=== PATIENT | female | born 1980 | race Caucasian/White ===

== ENCOUNTER 2019-04-28 10:39 | Inpatient (IN) | payer BC, OTHER ==
[~2019-04-28] VITALS: Ht 160 cm; Wt 64.4 kg
[2019-04-28 10:42] VITALS: BP 119/79
--- NOTE | 2019-04-28 10:53 | NUR ---
PT TO BED 4 WITH STEADY GAIT
[2019-04-28] MEDS ORDERED: NACL 0.9% 1,000 ML IV ONE (11:10)
--- NOTE | 2019-04-28 11:11 | NUR ---
PATIENT PRESENTS TO ED WITH C/O VAGINAL BLEEDING WITH CLOTS SINCE 03/29/19 WITH FEELING LIGHTHEADED AND DIZZINESS. NO C/O DISCHARGE OR URINARY SYMPTOMS. C/O PALPITATIONS AND GENERAL WEAKNESS. PT STATES THAT SHE IS TAKING AN IRON SUPPLEMENT 3X DAY FOR ANEMIA. DENIES N/V/D; SKIN IS PINK/WARM/DRY; AAOX4 WITH EVEN AND STEADY GAIT; HR EVEN AND REGULAR; PT DENIES ANY FEVER, CP, SOB, OR COUGH AT THIS TIME; PATIENT STATES PAIN OF 0/10 AT THIS TIME; VSS; PATIENT POSITIONED FOR COMFORT; HOB ELEVATED; BEDRAILS UP X2; BED DOWN. ER MD SAW PT.
[2019-04-28 11:37] LABS: BASOPHILS % (AUTO) 0.6 % (0.0-2.0); EOSINOPHILS % (AUTO) 0.3 % (0.0-4.0); HEMATOCRIT 20.8 % (36-48); LYMPHOCYTES # (AUTO) 1.4 K/uL (2.5-16.5); MEAN CORPUSCULAR HEMOGLOBIN 28 pg (27-31); MEAN CORPUSCULAR HGB CONC 32 g/dL (33-37); MEAN CORPUSCULAR VOLUME 86.8 fL (80-94); MONOCYTES # (AUTO) 0.6 K/uL (0.8-1.0); MONOCYTES % (AUTO) 6.6 % (1.7-9.3); NEUTROPHILS # (AUTO) 6.6 K/uL (1.8-7.7); NEUTROPHILS % (AUTO) 76.5 % (42.2-75.2); PLATELET COUNT (AUTO) 405 K/uL (140-450); RED BLOOD CELL COUNT(AUTO) 2.39 MIL/uL (4.20-5.40); RED CELL DISTRIBUTION WIDTH 27.5 % (11.6-13.7); WHITE BLOOD COUNT (AUTO) 8.6 K/uL (4.8-10.8)
[2019-04-28 11:39] LABS: PROTHROMBIN TIME 9.3 secs (10.8-13.4)
[2019-04-28 11:41] LABS: ALBUMIN 3.2 g/dL (3.4-5.0); ANION GAP 10.8 (8-16); CARBON DIOXIDE 24.9 mmol/L (21-32); CREATININE 0.8 mg/dL (0.6-1.3); POTASSIUM 3.7 mmol/L (3.5-5.1); TOTAL BILIRUBIN 0.1 mg/dL (0.0-1.0)
[2019-04-28 11:45] LABS: APPEARANCE,URINE CLOUDY (CLEAR); BILIRUBIN,URINE NEGATIVE (NEGATIVE); BLOOD, URINE 3+ (NEGATIVE); COLOR,URINE RED (YELLOW); LEUKOCYTE ESTERASE ,URINE 2+ (NEGATIVE); NITRITE, URINE POSITIVE (NEGATIVE); UGLUCOSE NEGATIVE (NEGATIVE)
[2019-04-28 12:06] LABS: RBC,URINE >100 /HPF (0-5); WBC,URINE 16-25 (MOD) /HPF (0-5)
[2019-04-28 12:12] LABS: HEMOGLOBIN 6.7 g/dL (12.0-16.0)
[2019-04-28] MEDS ORDERED: cefTRIAXone 1,000 MG VIAL ONE (12:33)
[2019-04-28 13:35] VITALS: BP 94/67
--- NOTE | 2019-04-28 13:35 | NUR ---
Patient will be admitted to care of DR. JOSHUA. Admited to MS. Will go to room 120-A. Belongings list completed. Report to EDWIN FARFAN.
--- NOTE | 2019-04-28 13:35 | NUR ---
RECEIVED PT FROM ER NURSE, VIA AYLINRAKOSUA, PT IS AWAKE AND AMBULATED TO THE BED, WITH FAMILY ON THE BEDSIDE, IV LINE ON THE RT HAND G. 22 WITH NS INFUSING AT BOLUS AT A 300ML VOLUME, PT DENIES PAIN AND NO SIGN OF DISTRESS NOTED, SIDE RAISL ARE UP AND CALL LIGHT WITHIN REACH, SAFETY PRECAUTION INITIATED, BELONGINGS ARE WITH PT WILL CONTINUE TO BE MONITORED
--- NOTE | 2019-04-28 13:40 | NUR ---
VITAL SIGNS TAKEN AND BP IS 94/35, TEMPERATURE IS 97.7, PULSE IS 74, O2 SATURATION IS AT 100%, NO SIGN OF DISTRESS NOTED AND WILL MONITOR PT.
--- NOTE | 2019-04-28 13:50 | NUR ---
MRSA SWAB DOEN TO PT AND SAMPLE SENT TO LAB.
[2019-04-28 16:00] VITALS: BP 94/50
--- NOTE | 2019-04-28 16:25 | NUR ---
BLOOD TRANSFUSION WAS STARTED TO PT, HGB IS 6.7, VITAL SIGNS TAKEN 10MINS PRIOR. WILL MONITOR PT.
--- NOTE | 2019-04-28 17:25 | NUR ---
PT'S BLOOD TRANSFUSION RATE WAS INCREASED TO 100ML. WILL MONITOR PT.
--- NOTE | 2019-04-28 18:00 | NUR ---
PT WAS GIVEN A REGULAR DIET DINNER TRAY AND NO SIGN OF DISTRESS NOTED, BT WAS STILL GOING.
--- NOTE | 2019-04-28 18:40 | NUR ---
DR. BANKS CAME TO THE PT'S ROOM AND SPOKE TO PT REGARDING THE PLAN OF CARE.
--- NOTE | 2019-04-28 19:20 | NUR ---
ENDORSED PT TO CUTTING MACHINE OPERATOR NURSE OBED, FOR CONTINUITY OF CARE.
--- NOTE | 2019-04-28 19:21 | NUR ---
RECEIVED BEDSIDE REPORT FROM DAY SHIFT NURSE, PT IS AAOX4, SPOUSE AT BEDSIDE. DR. KENDRICK VISITED. IV LINE ON THE RT HAND G. 22 WITH BLOOD TRANSFUSION, PT DENIES PAIN AND NO SIGN OF DISTRESS NOTED, SIDE RAISE ARE UP AND CALL LIGHT WITHIN REACH, SAFETY PRECAUTION INITIATED, BOARD UPDATED, BED IN LOW POSITION.
[2019-04-28] MEDS ORDERED: medroxyPROGESTERone 10 MG TAB PO SCH (19:30)
--- NOTE | 2019-04-28 20:10 | NUR ---
1ST BAG OF BLOOD DONE. VS CHECKED, WITHIN PT'S BASELINE. WILL HANG 2ND BAG.
--- NOTE | 2019-04-28 21:20 | NUR ---
VS CHECKED, WITHIN PT'S BASELINE. WILL CONTINUE TO MONITOR.
--- NOTE | 2019-04-28 21:30 | NUR ---
2ND BAG OF BLOOD UNIT STARTED, VERIFIED WITH CHARGE NURSE, MARIA TERESA. PT TOLERATED WELL. WILL CONTINUE TO MONITOR.
--- NOTE | 2019-04-28 21:45 | NUR ---
VS CHECKED, WITHIN PT'S BASELINE. WILL CONTINUE TO MONITOR.
--- NOTE | 2019-04-28 22:00 | NUR ---
PROVERA IS NOT AVAILABLE IN THE UNIT. CALLED DR. BANKS AND HE ORDERED OK TO START FROM TOMORROW MORNING. REPORTED DR. PT DOES NOT HAVE FLUID ORDER AFTER BLOOD TRANSFUSION. RECEIVED LR @125MLS/HR. WILL START IV FLUID AFTER BLOOD UNIT. VS CHECKED, WITHIN PT'S BASELINE. WILL CONTINUE TO MONITOR.
--- NOTE | 2019-04-28 23:00 | NUR ---
VS CHECKED, WITHIN PT'S BASELINE. WILL CONTINUE TO MONITOR.
[2019-04-29] VITALS: BP 91/44
--- NOTE | 2019-04-29 | NUR ---
VS CHECKED, WITHIN PT'S BASE LINE. WILL CONTINUE TO MONITOR.
[2019-04-29] MEDS ORDERED: LACTATED RINGERS 1,000 ML IV SCH (00:15)
--- NOTE | 2019-04-29 00:20 | NUR ---
2ND BAG OF BLOOD TRANSFUSION DONE. PT TOLERATED WELL.
--- NOTE | 2019-04-29 02:15 | NUR ---
PT SLEEPING IN BED. NO ACUTE DISTRESS NOTED.
--- NOTE | 2019-04-29 04:25 | NUR ---
PT SLEEPING IN BED. NO ACUTE DISTRESS NOTED.
[2019-04-29 06:21] LABS: BASOPHILS # (AUTO) 0.1 K/uL (0.00-0.22); BASOPHILS % (AUTO) 0.6 % (0.0-2.0); EOSINOPHILS # (AUTO) 0.1 K/uL (0-0.4); EOSINOPHILS % (AUTO) 1.1 % (0.0-4.0); HEMATOCRIT 26.7 % (36-48); HEMOGLOBIN 8.9 g/dL (12.0-16.0); LYMPHOCYTES # (AUTO) 1.7 K/uL (2.5-16.5); MEAN CORPUSCULAR HEMOGLOBIN 29 pg (27-31); MEAN CORPUSCULAR HGB CONC 33 g/dL (33-37); MEAN CORPUSCULAR VOLUME 85.9 fL (80-94); MONOCYTES # (AUTO) 0.5 K/uL (0.8-1.0); MONOCYTES % (AUTO) 5.6 % (1.7-9.3); NEUTROPHILS # (AUTO) 6.4 K/uL (1.8-7.7); PLATELET COUNT (AUTO) 317 K/uL (140-450); RED BLOOD CELL COUNT(AUTO) 3.11 MIL/uL (4.20-5.40); RED CELL DISTRIBUTION WIDTH 21.9 % (11.6-13.7); WHITE BLOOD COUNT (AUTO) 8.8 K/uL (4.8-10.8)
--- NOTE | 2019-04-29 06:43 | NUR ---
PT SLEEPING IN BED. NO ACUTE DISTRESS NOTED.
--- NOTE | 2019-04-29 07:20 | NUR ---
RECEIVED PT FROM NIGHT NURSE. PT AWAKE IN BED AAOX4 ACCOMPANIED BY SIGNIFICANT OTHER. PT DENIES PAIN AT THIS TIME. NO DISTRESS NOTED. RESPIRATIONS EVEN AND UNLABORED ON ROOM AIR, CLEAR BREATH SOUNDS. IV IN PLACE ASYMPTOMATIC PATENT AND INFUSING PER ORDER IN R HAND 22G. SKIN INTACT. SAFETY MEASURES IN PLACE. CALL LIGHT WITHIN REACH. BED IN LOW POSITION. WILL CONTINUE TO MONITOR.
[2019-04-29 07:32] LABS: LYMPHOCYTES % (AUTO) 19.8 % (20.5-51.1); NEUTROPHILS % (AUTO) 72.9 % (42.2-75.2)
--- NOTE | 2019-04-29 08:20 | NUR ---
PT TRANSPORTED OFF UNIT VIA GURNEY TO OR FOR HYSTEROSCOPY D AND C.
[2019-04-29] MEDS ORDERED: medroxyPROGESTERone 10 MG TAB PO SCH (09:00)
[2019-04-29] MEDS ORDERED: KETOROLAC 30 MG/ML VIAL ONE (09:23)
[2019-04-29] MEDS ORDERED: PROPOFOL 200 MG/20 ML VIAL IV ONE (09:23)
[2019-04-29] MEDS ORDERED: DESFLURANE 240 ML BTL INH ONE (09:23)
[2019-04-29] MEDS ORDERED: DEXAMETHASONE 4 MG/ML VIAL ONE (09:23)
[2019-04-29] MEDS ORDERED: ONDANSETRON 4 MG/2 ML VIAL ONE (09:23)
[2019-04-29] MEDS ORDERED: fentaNYL 0.05 MG/ML VIAL ONE (09:27)
[2019-04-29] MEDS ORDERED: BUPIVACAINE-MPF/EPI 0.25% 10 ML VIAL INJ ONE (09:33)
[2019-04-29] MEDS ORDERED: BUPIVACAINE-MPF/EPI 0.25% 30 ML VIAL INJ ONE (09:36)
[2019-04-29] MEDS ORDERED: KETOROLAC 30 MG/ML VIAL IVP SCH (10:30)
--- NOTE | 2019-04-29 10:50 | NUR ---
PT RETURNS TO UNIT FROM OR AT THIS TIME. STABLE VITAL SIGNS.
[2019-04-29 12:33] VITALS: BP 99/44
--- NOTE | 2019-04-29 13:10 | NUR ---
PT DISCHARGED HOME AT THIS TIME. DISCHARGE AND FOLLOWUP INSTRUCTIONS GIVEN, PT VERBALIZES UNDERSTANDING. DISCHARGE PAPERWORK SIGNED BY PT. PERSONAL BELONGINGS REVIEWED AND RETURNED TO PT. PT REFUSES FLU VACCINE. IV SITES REMOVED WITH MINIMAL BLOOD LOSS AND LUMEN INTACT. RESPIRATIONS EVEN AND UNLABORED, CLEAR BREATH SOUNDS. SKIN INTACT. VITAL SIGNS STABLE. PT DENIES PAIN. ID BANDS REMOVED. PT ESCORTED OFF UNIT ON FOOT ACCOMPANIED BY FAMILY MEMBERS.
--- NOTE | 2019-04-29 13:24 | NUR ---
DC PLANNING 38 YRS OLD FEMALE WAS ADMITTED FROM HOME WITH A DX OF SYMPTOMATIC ANEMIA PT HAS HX OF CHRONIC ANEMIA DUE TO MENORRHAGIA . H/H 6.6/20.8 2 UNITS PRBC ORDERED IVF AND ROCEPHIN ADMINISTERED. ULTRASOUND SHOWS FIBROIDS HYSTEROSCOPY W/ D&C DONE WITH DR BANKS . STABLE FOR DC HOME AND F/U WITH DR BANKS IN 1 WEEK
== END 2019-04-29 13:10 | disposition home or self-care (01) | DRG 744 ==
LOC: MED 10:39 → MTU 12:47
PROVIDERS: ADMIT Obstetrics & Gynecology; ATTEND Obstetrics & Gynecology
PROC: 30233N1 Transfusion of Nonautologous Red Blood Cells into Peripheral Vein, Percutaneous Approach (ICD-10-PCS; 2019-04-28)
PROC: 0UDB8ZZ Extraction of Endometrium, Via Natural or Artificial Opening Endoscopic (ICD-10-PCS; principal; 2019-04-29 08:00)
DX: N92.0 Excessive and frequent menstruation with regular cycle (principal); D62 Acute posthemorrhagic anemia; D25.9 Leiomyoma of uterus, unspecified; D64.9 Anemia, unspecified; F32.9 Major depressive disorder, single episode, unspecified
CPT/HCPCS: 36415; 36430; 80053; 81001; 84702; 85025; 85610; 85730; 86886; 86900; 86901; 86920; 87081; 87086; 87186; 88305; 96361; 96365; 99285; J0696; J1100; J1885; J2405; J2704; J3010; J3490; J7030; J7060; J7120; P9016